=== PATIENT | female | born 1955 | race Hispanic/Latino ===

== ENCOUNTER 2017-07-05 14:18 | Inpatient (IN) | payer MEDICARE, OTHER ==
[2017-07-05 14:22] VITALS: BMI 41.8
--- NOTE | 2017-07-05 15:20 | ED PDOC ---
Arrival/HPI <Lucho Osman - Last Filed: 07/05/17 18:30> <PeterJoe Chandler - Last Filed: 07/05/17 18:31> - General Chief Complaint: Dizziness/Lightheaded Time Seen by Provider: 07/05/17 14:30 - History of Present Illness Narrative History of Present Illness (Text): 07/05/17 15:09 62 year old female presents to the emergency room with a chief complaint of near syncope with frequent falls. The patient states since Wednesday she has been experiencing increasing episodes of lightheadedness. She never had any of episodes like this before Wednesday. Since Wednesday she has been experiencing these episodes more frequently each day. She states that when she stands up from a seat position or if she has been standing too long, she gets extremely dizzy, lightheaded and then falls. "It feels like the world is spinning around me, then my body feels weightless and I collapse to the floor." Patient reports that she experiences blurred vision before she falls. She states that she has never lost consciousness with these falls. Denies hitting her head. Denies f/c, n/v, d/c, sob, cp, numbness, tingling, double vision, slurred speech, weakness or paralysis. PMD: Dr. Greenwood PMH: HTN, DM, Hypothyroidsm, Anxiety, Skin Cancer, Heart murmur, OA Social: Denies tobacco, alcohol and illicit drug use (Lucho Osman) Past Medical History - Provider Review Nursing Documentation Reviewed: Yes - Infectious Disease Hx of Infectious Diseases: None - Tetanus Immunization Tetanus Immunization: Unknown - Cardiac Hx Cardiac Disorders: Yes Hx Heart Murmur: Yes Hx Hypertension: Yes - Pulmonary Hx Respiratory Disorders: Yes Hx Pneumonia: Yes (hx) - Neurological Hx Neurological Disorder: Yes Hx Dizziness: Yes Other/Comment: bels palsy - HEENT Hx HEENT Disorder: No - Renal Hx Renal Disorder: No - Endocrine/Metabolic Hx Endocrine Disorders: Yes Hx Diabetes Mellitus Type 2: Yes (boaderline) Hx Hypothyroidism: Yes - Hematological/Oncological Hx Blood Disorders: Yes Hx Cancer: Yes (skin) - Integumentary Hx Dermatological Disorder: Yes Hx Melanoma: Yes - Musculoskeletal/Rheumatological Hx Musculoskeletal Disorders: Yes Hx Arthritis: Yes (b/ knees) Hx Falls: Yes Hx Osteoporosis: Yes - Gastrointestinal Hx Gastrointestinal Disorders: Yes Hx Gastroesophageal Reflux: Yes - Genitourinary/Gynecological Hx Genitourinary Disorders: No - Psychiatric Hx Psychophysiologic Disorder: Yes Hx Depression: Yes Hx Emotional Abuse: No Hx Physical Abuse: No Hx Substance Use: No - Past Surgical History Past Surgical History: No Previous - Surgical History Other/Comment: skin cancer removed from Forehead. 2 D&C's - Anesthesia Hx Anesthesia: Yes Hx Anesthesia Reactions: No Hx Malignant Hyperthermia: No - Suicidal Assessment Feels Threatened In Home Enviroment: No <Lucho Osman - Last Filed: 07/05/17 18:30> Family/Social History - Physician Review Nursing Documentation Reviewed: Yes Family/Social History: Unknown Family HX Smoking Status: Never Smoked Hx Alcohol Use: No Hx Substance Use: No Hx Substance Use Treatment: No <Lucho Osman - Last Filed: 07/05/17 18:30> Allergies/Home Meds <Lucho Osman - Last Filed: 07/05/17 18:30> <Joe Green - Last Filed: 07/05/17 18:31> Allergies/Adverse Reactions: Allergies No Known Allergies Allergy (Verified 07/05/17 14:22) Home Medications: Home Meds Medication Instructions Recorded Confirmed Alprazolam [Xanax] 0.25 mg PO TID 04/07/14 07/05/17 MetFORMIN [glucoPHAGE] 500 mg PO DAILY 04/07/14 07/05/17 PARoxetine [Paxil] 20 mg PO HS 04/07/14 07/05/17 Gemfibrozil [Lopid] 600 mg PO BID 11/11/15 07/05/17 Aspirin [Ecotrin] 81 mg PO DAILY 11/21/15 07/05/17 Magnesium Oxide [Mag-Ox] 400 mg PO TID 11/21/15 07/05/17 Zolpidem [Ambien] 10 mg PO HS 11/21/15 07/05/17 Allopurinol [Zyloprim] 1 tab PO BID 07/05/17 07/05/17 Cyanocobalamin (Vitamin B-12) 1,000 mcg SC Q30D 07/05/17 07/05/17 [Liquid B12] Folic Acid [Folic Acid] 1 mg PO DAILY 07/05/17 07/05/17 Glimepiride [amaRYL] 1 tab PO BID 07/05/17 07/05/17 Levothyroxine Sodium [Levothroid] 150 mcg PO DAILY 07/05/17 07/05/17 MetFORMIN [glucoPHAGE] 1 tab PO BID 07/05/17 07/05/17 Rosuvastatin Calcium [Crestor] 1 tab PO DAILY 07/05/17 07/05/17 Valsartan [Diovan] 1 tab PO DAILY 07/05/17 07/05/17 Review of Systems - Physician Review All systems were reviewed & negative as marked: Yes - Review of Systems Constitutional: Normal. absent: Fatigue, Fevers Eyes: Vision Changes (blurred vision). absent: Photophobia, Eye Pain Respiratory: absent: SOB, Cough, Wheezing Cardiovascular: absent: Chest Pain, Palpitations, Edema, Calf Pain Gastrointestinal: absent: Abdominal Pain, Constipation, Diarrhea, Nausea, Vomiting Genitourinary Female: absent: Dysuria Musculoskeletal: Other (knee pain b/l (hx of OA)) Skin: Normal Neurological: Dizziness, Other (near syncope). absent: Headache, Focal Weakness , Gait Changes, Speech Changes, Facial Droop Endocrine: Normal. absent: Diaphoresis Psychiatric: Normal <Lucho Osman - Last Filed: 07/05/17 18:30> Physical Exam Vital Signs Reviewed: Yes Temperature: Afebrile Blood Pressure: Normal Pulse: Regular Respiratory Rate: Normal Appearance: Positive for: Well-Appearing, Non-Toxic, Comfortable Pain Distress: None Mental Status: Positive for: Alert and Oriented X 3 Finger Stick Blood Glucose: 176 - Systems Exam Head: Present: Atraumatic, Normocephalic Extroacular Muscles: Present: EOMI Conjunctiva: Present: Normal Ears: Present: Normal, NORMAL TM, Normal Canal. No: Erythema, TM Bulging, Fluid , TM Perf Mouth: Present: Moist Mucous Membranes Nose (External): Present: Atraumatic Neck: Present: Normal Range of Motion Respiratory/Chest: Present: Clear to Auscultation. No: Respiratory Distress, Accessory Muscle Use, Wheezes, Rhonchi Cardiovascular: Present: Regular Rate and Rhythm, Normal S1, S2 Abdomen: Present: Normal Bowel Sounds. No: Tenderness, Distention, Peritoneal Signs Upper Extremity: Present: Normal Inspection, Normal ROM, NORMAL PULSES, Capillary Refill < 2s. No: Cyanosis, Edema Lower Extremity: Present: Normal Inspection, NORMAL PULSES, Neurovascularly Intact, Capillary Refill < 2 s. 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 - CBC - Hbg 11.4 (baseline) - WNL - CMP - AST 88/ALT 63 - rest unremarkable - Mag 2.5/Phos 2.3 - CK - 120 normal - Troponin - <0.01 normal (Lucho Osman) 07/05/17 In agreement with resident note, which includes further HPI details. Patient was seen and evaluated with resident, came up with plan and treatment together. 62 year old F p/w lightheadedness causing near syncope and frequent falls the last few days. Questionable vertigo but negative teodoro hallpike or nystagmus and not relieved with trial of meclizine. (Joe Green) - Lab Interpretations Lab Results: 07/05/17 14:42 07/05/17 14:42 Lab Results 07/05/17 14:42: Sodium 140, Potassium 4.4, Chloride 104, Carbon Dioxide 21, Anion Gap 19, BUN 32 H, Creatinine 1.0, Est GFR ( Amer) > 60, Est GFR ( Non-Af Amer) 56, Random Glucose 172 H, Calcium 9.8, Phosphorus 2.3 L, Magnesium 2.5 H, Total Bilirubin 0.6, AST 88 H, ALT 63 H, Alkaline Phosphatase 104, Total Creatine Kinase 120, Troponin I < 0.01, Total Protein 8.2, Albumin 4.8, Globulin 3.3, Albumin/Globulin Ratio 1.5 07/05/17 14:42: WBC 9.3, RBC 3.66, Hgb 11.4 L, Hct 35.2 L, MCV 96.2, MCH 31.1, MCHC 32.4, RDW 13.9, Plt Count 307, MPV 11.1 H, Gran % 72.2 H, Lymph % (Auto) 17.7 L, Esmeralda % (Auto) 6.9 H, Eos % (Auto) 2.7, Baso % (Auto) 0.5, Gran # 6.71 H , Lymph # 1.6, Esmeralda # 0.6, Eos # 0.3, Baso # 0.05 - RAD Interpretation Radiology Orders: 07/05/17 15:06 HEAD W/O CONTRAST [CT] Stat CHEST PORTABLE [RAD] Stat 07/05/17 18:16 BRAIN WITHOUT CONTRAST [MRI] Urgent MRA HEAD WITHOUT CONTRAST [MRI] Urgent CAROTID & VERTEBRAL DUPLEX [US] Urgent 07/05/17 18:21 DUPLEX LOWER EXTRM VEIN BILAT [US] Stat - Medication Orders Current Medication Orders: Aspirin (Ecotrin) 81 mg PO DAILY ERNIE Carbamide Peroxide (Debrox Ear Drops) 0 ml AU BID ERNIE Folic Acid (Folic Acid) 1 mg PO DAILY ERNIE Sodium Chloride (Sodium Chloride 0.9%) 1,000 mls @ 100 mls/hr IV .Q10H ERNIE Stop: 07/06/17 04:29 Insulin Human Lispro (Humalog Med) 0 units SC ACHS ERNIE PRN Reason: Protocol Levothyroxine Sodium (Synthroid) 150 mcg PO ACB ERNIE Magnesium Oxide (Mag-Ox) 400 mg PO TID ERNIE Meclizine HCl (Antivert) 25 mg PO Q8H ERNIE Paroxetine HCl (Paxil) 20 mg PO HS ERNIE Discontinued Medications Aspirin (Ecotrin) 325 mg PO STAT STA Stop: 07/05/17 18:23 Meclizine HCl (Antivert) 50 mg PO STAT STA Stop: 07/05/17 16:09 Last Admin: 07/05/17 17:15 Dose: 50 mg <Lucho Osman - Last Filed: 07/05/17 18:30> - 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 / has examined the patient and agrees with the treatment plan. - Scribe Statement The provider has reviewed the documentation as recorded by the Scribe <Joe Green - Last Filed: 07/05/17 18:31> - Scribe Statement 07/05/2017 Shazia Mike Provider Scribe Attestation: All medical record entries made by the Scribe were at my direction and personally dictated by me. I have reviewed the chart and agree that the record accurately reflects my personal performance of the history, physical exam, medical decision making, and the department course for this patient. I have also personally directed, reviewed, and agree with the discharge instructions and disposition. (Joe Green) Disposition/Present on Arrival - Present on Arrival History of DVT/PE: No History of Uncontrolled Diabetes: Yes Urinary Catheter: No History of Decub. Ulcer: No History Surgical Site Infection Following: None <Lucho Osman - Last Filed: 07/05/17 18:30> - Present on Arrival Any Indicators Present on Arrival: No History of Uncontrolled Diabetes: No - Disposition Have Diagnosis and Disposition been Completed?: Yes Disposition Time: 17:45 Patient Plan: Observation, Telemetry <Joe Green - Last Filed: 07/05/17 18:31> - Disposition Diagnosis: Near syncope Disposition: HOSPITALIZED Condition: FAIR Referrals: Thomas Greenwood MD [Primary Care Provider] - Follow up with primary Forms: Yours Florally (Gabonese)
[2017-07-05 15:33] LABS: BASO # 0.05 K/mm3 (0.0-2.0); BASO % 0.5 % (0.0-3.0); EOS # 0.3 (0.0-0.7); EOS % 2.7 % (1.5-5.0); GRAN # 6.71 (1.4-6.5); GRAN % 72.2 % (50.0-68.0); HEMATOCRIT 35.2 % (36.0-48.0); LYMPH # 1.6 (1.2-3.4); LYMPH % 17.7 % (22.0-35.0); MEAN CELL VOLUME 96.2 fl (80.0-105.0); MEAN CORPUSCULAR HEMOGLOBIN 31.1 pg (25.0-35.0); MEAN CORPUSCULAR HGB CONC 32.4 g/dl (31.0-37.0); MEAN PLATELET VOLUME 11.1 fl (7.0-11.0); MONO # 0.6 (0.1-0.6); MONO % 6.9 % (1.0-6.0); RED CELL DISTRIBUTION WIDTH 13.9 % (11.5-14.5); WHITE BLOOD COUNT 9.3 10^3/ul (4.5-11.0)
[2017-07-05 15:41] LABS: ALB/GLOB RATIO 1.5 (1.1-1.8); ALKALINE PHOSPHATASE 104 U/L (38-126); ALT/SGPT 63 U/L (7-56); AST/SGOT 88 U/L (14-36); BILIRUBIN,TOTAL 0.6 mg/dL (0.2-1.3); BLOOD UREA NITROGEN 32 mg/dL (7-21); CALCIUM 9.8 mg/dL (8.4-10.5); CARBON DIOXIDE 21 mmol/L (21-33); CHLORIDE 104 mmol/L (98-107); GFR AFRICAN-AMERICAN > 60; GLUCOSE,RANDOM 172 mg/dL (70-110); MAGNESIUM 2.5 mg/dL (1.7-2.2); PHOSPHOROUS 2.3 mg/dL (2.5-4.5); POTASSIUM 4.4 mmol/L (3.6-5.0); SODIUM 140 mmol/L (132-148); TOTAL PROTEIN 8.2 g/dL (5.8-8.3)
--- NOTE | 2017-07-05 15:43 | CT ---
PROCEDURE: CT HEAD WITHOUT CONTRAST. HISTORY: near syncope COMPARISON: Noncontrast head CT performed 06/16/16 TECHNIQUE: Axial computed tomography images were obtained through the head/brain without intravenous contrast. Radiation dose: Total exam DLP = 836.85 mGy-cm. This CT exam was performed using one or more of the following dose reduction techniques: Automated exposure control, adjustment of the mA and/or kV according to patient size, and/or use of iterative reconstruction technique. FINDINGS: Streak artifact from dental hardware. HEMORRHAGE: No intracranial hemorrhage. BRAIN: No mass effect or edema. The medellin-white matter differentiation appears intact. Please note that MRI with diffusion imaging is more sensitive in the detection of acute ischemic event. VENTRICLES: No hydrocephalus. CALVARIUM: Unremarkable. PARANASAL SINUSES: Unremarkable as visualized. No significant inflammatory changes. MASTOID AIR CELLS: Unremarkable as visualized. No inflammatory changes. OTHER FINDINGS: None. IMPRESSION: No acute intracranial pathology identified.
--- NOTE | 2017-07-05 15:49 | RAD ---
HISTORY: near syncope COMPARISON: Chest x-ray performed 11/11/15 TECHNIQUE: Chest, one view. FINDINGS: Examination limited by habitus. The patient's chin obscures evaluation of the right lung apex. LUNGS: No focal consolidation. Please note that chest x-ray has limited sensitivity for the detection of pulmonary masses. PLEURA: No significant pleural effusion identified. No definite pneumothorax . CARDIOVASCULAR: Mild cardiomegaly. Atherosclerotic calcifications of the aortic knob. OSSEOUS STRUCTURES: Degenerative changes of the spine. VISUALIZED UPPER ABDOMEN: Unremarkable. OTHER FINDINGS: None. IMPRESSION: Mild cardiomegaly.
[2017-07-05 15:52] LABS: TROPONIN I < 0.01 ng/mL
--- NOTE | 2017-07-05 16:19 | CARD ---
APPROVED REPORT EKG Measurement Heart [id number] <Conclusion> Normal sinus rhythm Minimal voltage criteria for LVH, may be normal variant Nonspecific ST and T wave abnormality Prolonged QT Abnormal ECG
[2017-07-05] MEDS ORDERED: Sodium Chloride 0.9% 1,000 ML IV SCH (18:30)
[2017-07-05] MEDS: Aspirin 325 mg EC Tablets PO STA ×2 (18:36→18:45)
[2017-07-05 18:41] LABS: PH,URINE 6.5 (4.7-8.0); URINE BILIRUBIN NEGATIVE (NEGATIVE); URINE BLOOD TRACE-INTACT (NEGATIVE); URINE GLUCOSE (UA) NEGATIVE (NEGATIVE); URINE KETONE NEGATIVE (NEGATIVE); URINE LEUKOCYTE ESTERASE SMALL Leu/uL (NEGATIVE); URINE PROTEIN 30 mg/dL (<30 mg/dL); URINE UROBILINOGEN 0.2 E.U./dL (<1 E.U./dL)
[2017-07-05 18:46] LABS: URINE APPEARANCE CLEAR (CLEAR); URINE COLOR YELLOW (YELLOW)
[2017-07-05 18:54] LABS: URINE WBC 15 - 20 /hpf (0-6)
[2017-07-05 18:55] LABS: URINE BACTERIA MANY (NEG)
[2017-07-05] MEDS ORDERED: Pantoprazole 40 mg EC Tab PO STA (18:58)
[2017-07-05 19:00] LABS: CHOLESTEROL 169 mg/dL (130-200)
[2017-07-05 19:02] LABS: THYROID STIMULATING HORMONE 2.5 mIU/mL (0.46-4.68)
[2017-07-05 19:11] LABS: FREE T4 0.88 ng/dL (0.78-2.19); T4 6.8 ug/dL (5.5-11.0)
[2017-07-05] MEDS: Enoxaparin 40 mg Syringe SC SCH (20:04)
[2017-07-05 22:22] LABS: TROPONIN I < 0.01 ng/mL
[2017-07-05] MEDS ORDERED: Pneumococcal 23-Valent Vaccine IM ONE (22:38)
[2017-07-05] MEDS: Insulin Lispro (humaLOG) MEDIUM Coverage SC SCH (22:45)
[2017-07-06 02:56] LABS: TROPONIN I < 0.01 ng/mL
[2017-07-06] MEDS: Pantoprazole 20 mg EC Tab PO SCH ×2 (05:07→15:22)
[2017-07-06 07:08] LABS: BASO # 0.04 K/mm3 (0.0-2.0); BASO % 0.5 % (0.0-3.0); EOS # 0.3 (0.0-0.7); EOS % 3.8 % (1.5-5.0); GRAN # 5.06 (1.4-6.5); GRAN % 62.8 % (50.0-68.0); HEMATOCRIT 31.3 % (36.0-48.0); LYMPH % 25.2 % (22.0-35.0); MEAN CELL VOLUME 96.9 fl (80.0-105.0); MEAN CORPUSCULAR HEMOGLOBIN 30.3 pg (25.0-35.0); MEAN CORPUSCULAR HGB CONC 31.3 g/dl (31.0-37.0); MEAN PLATELET VOLUME 10.6 fl (7.0-11.0); MONO # 0.6 (0.1-0.6); MONO % 7.7 % (1.0-6.0); WHITE BLOOD COUNT 8.1 10^3/ul (4.5-11.0)
[2017-07-06 07:27] LABS: ALB/GLOB RATIO 1.4 (1.1-1.8); ALKALINE PHOSPHATASE 68 U/L (38-126); ALT/SGPT 63 U/L (7-56); AST/SGOT 98 U/L (14-36); BILIRUBIN,DIRECT 0.3 mg/dL (0.0-0.4); BILIRUBIN,TOTAL 0.3 mg/dL (0.2-1.3); BLOOD UREA NITROGEN 25 mg/dL (7-21); CALCIUM 9.3 mg/dL (8.4-10.5); CARBON DIOXIDE 22 mmol/L (21-33); CHLORIDE 108 mmol/L (98-107); GFR AFRICAN-AMERICAN > 60; GLUCOSE,RANDOM 114 mg/dL (70-110); MAGNESIUM 2.3 mg/dL (1.7-2.2); POTASSIUM 4.1 mmol/L (3.6-5.0); SODIUM 140 mmol/L (132-148); TOTAL PROTEIN 6.8 g/dL (5.8-8.3)
[2017-07-06] MEDS: Insulin Lispro (humaLOG) MEDIUM Coverage SC SCH ×4 (08:04→21:48)
[2017-07-06] MEDS: Levothyroxine 150 MCG TAB PO SCH (08:11)
[2017-07-06] MEDS: Cefepime 1gm in NS 100ml 1 GM/100 ML BAG IVPB SCH ×3 (08:25→21:07)
[2017-07-06 08:28] LABS: RETIC% 1.7 % (0.5-1.5)
[2017-07-06 08:39] LABS: IRON 57 ug/dL (45-180)
--- NOTE | 2017-07-06 10:16 | MRI ---
PROCEDURE: MRI BRAIN WITHOUT CONTRAST HISTORY: ??TIA COMPARISON: 11/12/2015 MRI of the brain TECHNIQUE: Multiplanar, multisequence MR images of the brain were obtained without intravenous contrast enhancement. FINDINGS: HEMORRHAGE: None DWI: No evidence of an acute or early subacute infarction. BRAIN PARENCHYMA: No mass effect or edema. No atrophy or chronic microvascular ischemic changes. VENTRICLES: Unremarkable. No hydrocephalus. CRANIUM: Unremarkable. ORBITS: Grossly unremarkable. PARANASAL SINUSES/MASTOIDS: Clear VASCULAR SYSTEM: Skull base flow voids intact. OTHER FINDINGS: None. IMPRESSION: No acute findings
--- NOTE | 2017-07-06 10:18 | MRI ---
PROCEDURE: Magnetic Resonance Angiography Brain HISTORY: ??tia COMPARISON: None available. TECHNIQUE: 3D time of flight MR angiography of the intracranial arteries was performed. Rotating maximum intensity projection images were generated. FINDINGS: INTERNAL CEREBRAL ARTERIES: Unremarkable. The skull base, petrous, cavernous and supraclinoid segments are bilaterally widely patient. ANTERIOR CEREBRAL ARTERIES: Unremarkable. A1 and A2 segments are widely patent. Smaller distal branches unremarkable, as visualized. MIDDLE CEREBRAL ARTERIES: Unremarkable. M1 and M2 segments are widely patent. Perisylvian branches grossly symmetric. POSTERIOR CIRCULATION: Basilar Artery: Unremarkable. Distal Vertebral Arteries: Unremarkable. Posterior Cerebral Arteries: Unremarkable. Posterior Inferior Cerebellar Arteries: Unremarkable. ANEURYSM/ VASCULAR MALFORMATIONS: None. OTHER FINDINGS: None. IMPRESSION: Unremarkable MR angiography of the brain.
[2017-07-06] MEDS: Magnesium Oxide 400 mg Tab UD PO SCH ×3 (10:47→18:38)
[2017-07-06] MEDS: Enoxaparin 40 mg Syringe SC SCH (10:48)
--- NOTE | 2017-07-06 11:23 | US ---
PROCEDURE: Bilateral carotid artery duplex ultrasound HISTORY: Carotid stenosis TIA PHYSICIAN(S): Chao Chavez MD. TECHNIQUE: Duplex sonography and color-flow Doppler were used to evaluate the carotid bifurcations and limited segments of the vertebral arteries bilaterally. The exam is limited by body habitus and tortuous vessels. FINDINGS: There is mild smooth heterogeneous plaque noted at the carotid bifurcations bilaterally. The peak systolic velocity in the proximal right internal carotid artery is 74 cm/sec. This corresponds to a 20 to 39% proximal right ICA stenosis. Normal systolic velocities are noted in the proximal right external carotid artery. There is antegrade flow in the right vertebral artery. The peak systolic velocity in the proximal left internal carotid artery is 80 cm/sec. This corresponds to a 20 to 39% proximal left ICA stenosis. Normal systolic velocities are noted in the proximal left external carotid artery. There is antegrade flow in the left vertebral artery. IMPRESSION: 1. Bilateral 20-39% proximal ICA stenoses. 2. Antegrade flow in both vertebral arteries. 3. Limited study.
--- NOTE | 2017-07-06 11:24 | US ---
HISTORY: Leg pain and swelling. Evaluate for DVT PHYSICIAN(S): Chao Chavez MD. TECHNIQUE: Duplex sonography and color-flow Doppler with graded compression were used to evaluate the deep venous systems of both lower extremities. The exam is somewhat limited by body habitus. FINDINGS: The visualized deep venous systems of both lower extremities are sonographically normal and compressible. Normal wave forms and augmentation are seen. There is no sonographic evidence for deep venous thrombosis in the visualized segments of both lower extremities. IMPRESSION: No sonographic evidence for deep venous thrombosis in the visualized segments of both lower extremities.
--- NOTE | 2017-07-06 11:36 | CON ---
NEUROLOGY CONSULTATION REASON FOR CONSULTATION: Dizziness and falls. HISTORY OF PRESENTING ILLNESS: The patient is a 62-year-old female who has been asked for evaluation of dizziness. The patient started having dizziness about 5 days ago. Dizziness is described as lightheaded feeling as well as spinning sensation. She has had the world spinning. She said as soon as she gets up from the chair, she gets the spinning sensation and she falls to the ground. She does not lose consciousness. She never had such feeling before. She said over the last 4 days, it has improved, but she is still dizzy. REVIEW OF SYSTEMS: Denies any headache. Denies any ringing in the ears, loss of hearing or pressure sensation in the ears. Denies any chest pain, shortness of breath, abdominal pain, constipation, diarrhea, dysuria, cough or sputum production. PAST MEDICAL HISTORY: Includes hypertension, hypothyroidism, anxiety, osteoarthritis. MEDICATIONS: At home included Ambien, Diovan, Crestor, Paxil, metformin, levothyroxine, glimepiride, folic acid, aspirin and Xanax. ALLERGIES: NO KNOWN DRUG ALLERGIES. SOCIAL HISTORY: Denies smoking, use of alcohol or illicit drugs. FAMILY HISTORY: Reviewed and noncontributory to the case. PHYSICAL EXAMINATION: GENERAL: The patient is an elderly pleasant female, lying on the bed, in no acute distress. VITAL SIGNS: Her blood pressure is 127/50, heart rate is 71 per minute, breathing at the rate of 16 per minute and temperature is 98.7 degree Fahrenheit. HEENT EXAM: Head is normocephalic and atraumatic. NECK: Supple. There are no carotid bruits. LUNGS: Clear. CARDIOVASCULAR EXAM: S1 and S2, audible. No murmurs. ABDOMEN: Soft and nontender. Bowel sounds are present. NEUROLOGY EXAMINATION: Mental status. The patient is awake, alert and oriented to time, place and person. Speech is fluent. Naming and repetition is normal. Memory and cognition are intact. Cranial Nerve Examination: Pupils are 4 mm bilaterally, reactive to light. Visual roldan are full. Extraocular movements are intact. There is no facial asymmetry. Palate is upgoing bilaterally and tongue is midline. Motor Examination: Tone is normal. Power is 5/5 bilaterally in all extremities. Reflexes +1 and symmetrical with absent ankle jerk. Plantars downgoing bilaterally. Cerebellar Examination: [id number] shows no dysmetria. Sensory Examination: Intact to soft touch and pin prick. Gait is deferred at the moment. LABORATORY DATA: Reviewed, shows WBC of 8.1, hemoglobin of 9.8, hematocrit of 31.3 and platelets of 254. Sodium is 140, potassium 4.1, chloride of 108, carbon dioxide content of 22, BUN of 25, creatinine 1.0 and glucose of 114. She had MRI of the brain done which showed no acute findings. She also had MRA of the brain, which was unremarkable MRA of the brain. 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 RECOMMENDATIONS: 1. The patient to have an electroencephalogram. 2. The patient to be continued on meclizine. 3. The patient to have physical therapy for gait and balance. 4. If the patient's dizziness improves and she is able to walk, then she maybe discharged with outpatient followup. 5. Please continue supportive care and other treatment. Thank you for the opportunity to participate in the care of this patient. Jorgito Wayne MD
--- NOTE | 2017-07-06 11:43 | CP.PCM.PN ---
Subjective - Date & Time of Evaluation Date of Evaluation: 07/06/17 Time of Evaluation: 11:39 - Subjective Subjective: Medicine Progress note. Dr. Greenwood Pt seen and examined at bedside. No acute events overnight. Patient states that she is very independent at home and walks with a cane. She states that she has been feeling dizzy for the past few days, described as "feeling un-centered" and "room-spinning". Denies any CP/SOB. No headaches. No N/V/D. No abd pain. No F/C. No signs of bleeding. No recent illness. Objective - Vital Signs/Intake and Output Vital Signs (last 24 hours): Temp Pulse Resp BP Pulse Ox 98.7 F 67 18 127/50 L 96 07/06/17 06:00 07/06/17 10:00 07/06/17 06:00 07/06/17 06:00 07/06/17 06:00 Intake and Output: 07/06/17 07/06/17 06:59 18:59 Intake Total 1240 Output Total 0 Balance 1240 - Medications Medications: Current Medications Alprazolam (Xanax) 0.25 mg PO TID ERNIE PRN Reason: Protocol Stop: 07/13/17 10:01 Last Admin: 07/06/17 10:47 Dose: 0.25 mg Aspirin (Ecotrin) 81 mg PO DAILY [facility] Last Admin: 07/06/17 10:47 Dose: 81 mg Carbamide Peroxide (Debrox Ear Drops) 0 ml AU BID [facility] Last Admin: 07/05/17 18:35 Dose: 1 applic Enoxaparin Sodium (Lovenox) 40 mg SC DAILY ERNIE PRN Reason: Protocol Last Admin: 07/06/17 10:48 Dose: 40 mg Folic Acid (Folic Acid) 1 mg PO DAILY [facility] Last Admin: 07/06/17 10:47 Dose: 1 mg Cefepime HCl (Maxipime 1gm) 1 gm in 100 mls @ 100 mls/hr IVPB Q8 ERNIE PRN Reason: Protocol Last Admin: 07/06/17 08:25 Dose: 100 mls/hr Iron Sucrose 200 mg/ Sodium (Chloride) 110 mls @ 110 mls/hr IVPB DAILY ERNIE Stop: 07/08/17 10:59 Insulin Human Lispro (Humalog Med) 0 units SC ACHS ERNIE PRN Reason: Protocol Last Admin: 07/06/17 08:04 Dose: Not Given Levothyroxine Sodium (Synthroid) 150 mcg PO ACB [facility] Last Admin: 07/06/17 08:11 Dose: 150 mcg Magnesium Oxide (Mag-Ox) 400 mg PO TID [facility] Last Admin: 07/06/17 10:47 Dose: 400 mg Meclizine HCl (Antivert) 25 mg PO Q8H [facility] Last Admin: 07/06/17 10:50 Dose: 25 mg Pantoprazole Sodium (Protonix Ec Tab) 20 mg PO 0600,1600 [facility] Last Admin: 07/06/17 05:07 Dose: 20 mg Paroxetine HCl (Paxil) 20 mg PO HS [facility] Last Admin: 07/05/17 22:45 Dose: 20 mg Zolpidem Tartrate (Ambien) 10 mg PO HS PRN; Protocol PRN Reason: Insomnia Last Admin: 07/05/17 22:45 Dose: 10 mg - Labs Labs: 07/06/17 05:15 07/06/17 05:15 - Constitutional Appears: Well, No Acute Distress - Head Exam Head Exam: ATRAUMATIC, NORMAL INSPECTION, NORMOCEPHALIC - Eye Exam Eye Exam: EOMI - ENT Exam ENT Exam: Mucous Membranes Moist - Neck Exam Neck Exam: Full ROM, Normal Inspection - Respiratory Exam Respiratory Exam: Clear to Ausculation Bilateral, NORMAL BREATHING PATTERN. absent: Accessory Muscle Use, Rales, Rhonchi, Wheezes - Cardiovascular Exam Cardiovascular Exam: RRR. absent: JVD - GI/Abdominal Exam GI & Abdominal Exam: Soft. absent: Distended, Firm, Guarding, Rigid, Tenderness , Rebound - Extremities Exam Extremities Exam: Pedal Edema (bilateral mild 1+ pitting edema). 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 - Psychiatric Exam Psychiatric exam: Normal Affect, Normal Mood - Skin Skin Exam: Dry, Intact, Normal Color, Warm Assessment and Plan - Assessment and Plan (Free Text) Assessment: 62yo F with PMHx including DM, HTN, Hypothyroid, Anxiety here with near-syncope - DM - HTN - Hypothyroidism - UTI - MRI Brain - negative - MRA brain - negative - CT Head - negative - Carotid Doppler - 20-39% bilateral proximal ICA stenosis. Antegrade flow. - EEG pending - Cefepime IV pending micro - Iron IV - Continue home meds as ordered - Appreciate Neuro consult - Meclizine - Physical Therapy Eval&Treat Discussed case with Dr. Krystyna Root PGY1
--- NOTE | 2017-07-06 12:14 | PN ---
DATE: 07/06/2017 The patient is seen in room 2675, bed one. SUBJECTIVE: The patient is made to sit up from the lying position. The patient is still complaining of dizziness, lightheadedness. The patient is still unable to, correctly do the efqqin-iify-sxejek coordination. The patient still has questionable Romberg sign. Overnight nurse's notes were reviewed. OBJECTIVE: VITAL SIGNS: T-max afebrile. Telemetry shows sinus rhythm, heart rate in 60s and 70s. Blood pressure 127/50, 123/71, 120/81, respiration 18 to 20, O2 sat 96% to 97%. HEENT: The patient's head examination normocephalic, atraumatic. HEENT examination shows pinkish pale conjunctivae. Anicteric sclerae. No oropharyngeal lesion. NECK: No neck rigidity. CHEST: Examination kyphosis. CARDIOPULMONARY: Examination S1, S2, regular rhythm. LUNGS: Examination shows no rales, crackles or wheezing. ABDOMEN: Abdomen is soft. Positive bowel sounds. Obese. GENITALIA: Female. RECTAL: Examination is deferred. EXTREMITIES: Shows chronic nonpitting swelling of the lower extremity. No calf tenderness. No Homans' sign. NEUROLOGIC: The patient is alert, awake, oriented x3. Motor strength is 5/5. Questionable Romberg sign is noted positive, inability to do htvntu-xowe-ephyhf coordination. Noted. MUSCULOSKELETAL: Examination shows a body mass index of 42. Gait examination could not be tested. DIAGNOSTIC DATA: The patient's diagnostic from 07/06/2017 noted. WBC count 8.1, hemoglobin/hematocrit has dropped to 9.8 and 31.3 from 11.4 and 35.2, platelet 254. Reticulocyte count 1.7. Sodium 140, potassium 4.1, chloride 108, CO2 22, anion gap 14, BUN 25, creatinine 1.0. GFR greater than 60, glucose 119, 114, 96, calcium 9.3, magnesium 2.3. Iron 57 which is low normal, TIBC 390, iron saturation 15, AST 98, ALT 63, troponin three sets are all negative. Lipid panel reviewed. Thyroid profile reviewed. MRI, MRA of the brain was noted which was done. MRI of the brain was noted to be negative for any acute infarct. MRA of the brain, carotid ultrasound is pending. IMPRESSION AND PLAN: 1. Questionable near syncope with recurrent persistent dizziness and lightheadedness, questionable transient ischemic attack. 2. Hypertension. 3. Morbid obesity. 4. Normocytic anemia. 5. Iron-deficiency normocytic anemia. 6. Granulocytosis. 7. Mildly elevated reticulocyte count. 8. Prerenal kidney injury. 9. Transaminitis etiology undetermined. 10. Questionable urinary tract infection with proteinuria, hematuria, pyuria, bacteriuria. 11. Questionable Romberg sign. 12. Questionable severe symptomatic vertigo. 13. N.p.o. 14. Hypertensive cardiovascular disease with lateral coronary ischemic changes. 15. History of insomnia. 16. History of dyslipidemia. 17. History of depression. 18. History of type 2 diabetes mellitus. 19. History of hypomagnesemia. 20. History of hypothyroidism. 21. History of hypovitaminosis D. 22. History of vitamin B12 deficiency. 23. History of anxiety disorder. 24. History of hyperuricemia. Plan at this time, the patient is seen by Neurology. The patient is to be continued on Ambien 10 mg h.s. p.r.n., meclizine 25 mg q.8h., Ecotrin 81 mg daily, folic acid 1 mg daily, Humalog medium dose sliding scale coverage. The patient is started on Venofer 200 mg IV daily. Lovenox 40 mg subcutaneous daily. Magnesium oxide 400 mg three times a day. Maxipime 1 g IV q.8. Paxil 20 mg h.s. Protonix 40 mg daily. Synthroid 150 mcg daily. Xanax 0.25 t.i.d. Venous Doppler, carotid Doppler results pending. EKG report pending. The patient is seen by neurology. EEG ordered. Consistent carbohydrate, physical therapy, occupational therapy ordered. At present, the patient's further management will be dependent upon the patient's clinical condition, hemodynamic status and as per the patient response to therapeutic intervention, as per the patient's diagnostic test results, and as per recommendation by all the physician involved in the care of the patient. The patient is updated about her condition, diagnosis, treatment plan, management plan. Dictated and electronically signed, not read. Thomas Greenwood MD [facility] # [id number]
[2017-07-06 13:04] LABS: FOLATE > 20.0 ng/mL
[2017-07-07] MEDS: Cefepime 1gm in NS 100ml 1 GM/100 ML BAG IVPB SCH ×2 (05:19→13:20)
[2017-07-07] MEDS: Pantoprazole 20 mg EC Tab PO SCH (05:19)
[2017-07-07 06:10] VITALS: RESP 18; O2SAT 94
--- NOTE | 2017-07-07 08:03 | HP ---
HISTORY OF PRESENT ILLNESS: The patient is a 62-year-old morbidly obese female who presented to the emergency room on 07/05/2017 complaining of 4-day history of dizzy spell, near syncope, but no loss of consciousness, difficulty standing up and feels like room is spinning. The patient has difficulty walking and recurrent falls. The patient came to the emergency room as an ambulatory walk-in. The patient was evaluated by the ER physician and the medical reception. The patient stated that she almost passed out of recurrent falls, severe dizziness, and lightheadedness. The patient's symptoms started 4 days prior on 07/02/2017. The patient's symptoms started getting more frequent and more severe. The patient felt that the room was spinning. The patient felt like she was about to pass out. The patient denies any loss of consciousness. CODE STATUS: FULL CODE. LIVING WILL: Advance directive none. Height is 5 feet 6 inches. Weight is 259. BMI is 42. ALLERGIES: NONE. HOME MEDICATIONS: 1. Ambien 10 mg at bedtime. 2. Diovan 80 mg daily. 3. Crestor 20 mg daily. 4. Paxil 20 mg at bedtime. 5. Metformin 1000 mg breakfast and dinner and 500 mg with lunch. 6. Magnesium oxide 400 mg 3 times a day. 7. Synthroid 150 mcg daily. 8. Amaryl 2 mg twice a day. 9. Lopid 600 mg twice a day. 10. Folic acid 1 mg daily. 11. Drisdol 50,000 weekly. 12. Vitamin B12, 1000 mcg once a month. 13. Ecotrin 81 mg daily. 14. Xanax 0.25 three times a day. 15. Zyloprim. 16. Allopurinol 100 mg twice a day. The patient's pharmacy is [facility]. SOCIAL HISTORY: Negative for smoking. Negative for alcohol. Negative for drug use. Negative for communicable transmissible disease. PAST MENSTRUAL HISTORY: Postmenopausal. OCCUPATIONAL HISTORY: Disabled elderly obese female. PAST MEDICAL AND SURGICAL HISTORY: History of anxiety, history of depression, history of insomnia, history of hypertension, history of proteinuria, microalbuminuria, history of morbid obesity, history of dyslipidemia, history of iron deficiency anemia, history of non-insulin requiring type 2 diabetes mellitus, history of hypomagnesemia, history of hypothyroidism, history of hypovitaminosis D, history of vitamin B12 deficiency, and history of hyperuricemia.. The patient's past medical history is significant for obesity, history of bilateral lower extremity nonpitting venous stasis, history of dense breast, history of osteoporosis, osteopenia, and history of negative stress test in 11/2015. Past medical history is significant for degenerative joint disease of the knees, history of morbid obesity, and history of aortic sclerosis. The patient's past medical history is significant for near syncope, history of abnormal EKG with lateral ischemic changes, history of hypertensive cardiovascular disease, history of normocytic iron-deficiency anemia, history of hypovitaminosis D, hypothyroidism, history of vertigo, history of hypertension, history of anxiety and depression, history of syncope, near syncope, history of weakness, and history of anxiety. History of normal EEG. PHYSICAL EXAMINATION: VITAL SIGNS: T-max 98.2 to 98.4, heart rate 90, 86, and 74, blood pressure 112/77, 114/75, 118/69, 120/81, respirations 18, and O2 sat 96%-97%. HEENT: Head is normocephalic and atraumatic. HEENT examination shows pinkish pale conjunctivae. Anicteric sclerae. NECK: Questionable soft carotid bruit. CHEST: Kyphosis. LUNGS: Shows no rales, crackles or wheezing. CARDIOVASCULAR: S1 and S2, regular rhythm. Questionable soft systolic murmur, left second intercostal space, left sternal border. ABDOMEN: Morbidly obese. GENITALIA: Female. RECTAL: Deferred. EXTREMITIES: Shows chronic nonpitting swelling of the lower extremity. MUSCULOSKELETAL: Shows a body mass index of 42. Cranial nerves II through XII limited. Motor strength 5/5 in upper and lower extremity. The patient has a questionable positive Romberg sign. The patient is unable to do xhmbye-zkzj-mlwpfx coordination. Wdug-dtyk-ihro is impaired. Romberg sign with questionable positive. Motor strength is 5/5 in upper and lower extremities. PSYCHIATRIC: Positive for extreme anxiety, depression, and insomnia. DIAGNOSTIC DATA: WBC 9.3, hemoglobin/hematocrit 11.4 and 35.2, and platelets 307. Granulocytes 72. Sodium 140, potassium 4.4, chloride 104, CO2 of 21, anion gap 19, BUN 32, creatinine 1.0, GFR is greater than 60, and glucose 172. Calcium 9.8, phosphorus 2.3, magnesium 2.5, AST 88, ALT 63, and troponin is negative. TSH is 2.5 and T4 is 6.8. Urine pH 6.5, specific gravity 1.015, 30 protein, trace type blood, small leukocyte, WBC 15-20, and many bacteria. Urine drug screen positive for benzodiazepines. Chest x-ray shows degenerative joint disease of the spine. Mild cardiomegaly. CT of the head was done. Venous Doppler of the lower extremities preliminary reading was negative for DVT. EKG was done in the emergency room shows sinus rhythm with T-wave changes in 1, aVL, and V4-V6. The patient was seen and evaluated in the emergency room by and medical reception. The patient was advised to be placed on telemetry for near-syncope. IMPRESSION AND PLAN: 1. Near syncope, etiology undetermined with severe dizziness and recurrent falls. 2. Questionable severe symptomatic vertigo. 3. Questionable transient ischemic infarct. 4. Questionable transient ischemic attack. 5. History of hypertension. 6. Morbid obesity. 7. Normocytic anemia with granulocytosis. 8. Type 2 non-insulin requiring diabetes mellitus with hyperglycemia. 9. Prerenal kidney injury. 10. Transaminitis, etiology undetermined. 11. Questionable urinary tract infection with proteinuria, microscopic hematuria, pyuria, and bacteriuria. 12. Morbid obesity. 13. Hypertensive cardiovascular disease. 14. Questionable lateral coronary ischemic changes. 15. Mild cardiomegaly with degenerative joint disease of the spine. 16. History of urinary tract infection. 17. History of insomnia, history of hypertension, history of microalbuminuria and proteinuria, history of dyslipidemia, history of depression, history of type 2 diabetes mellitus, history of hypothyroidism, history of hypovitaminosis D, history of vitamin B12 deficiency, history of anxiety, and history of hyperuricemia. Present, the patient is to be admitted to [facility]. The patient's further management will be dependent upon the patient's clinical condition, hemodynamic status, and as per the patient response to therapeutic intervention as per the patient's diagnostic test results and as per recommendation by all the physician involved in the care of the patient. The patient has been updated about her condition, diagnosis, treatment plan, management plan at length and all questions concerned and answered, which she acknowledged understand. The patient has been ordered an MRI, MRA of the brain, and carotid Doppler.. The patient will be requested neurology consultation. The patient was resumed on most of this medication. The patient started on Antivert 25 mg every 8 hours. Ecotrin 81 mg daily, folic acid 1 mg daily, and the patient started on Humalog medium dose sliding scale a.c. and at bedtime ordered. The patient is ordered on DVT prophylaxis.. Urine cultures have been ordered. Hepatitis serologies have been ordered. Lipid panel, uric acid, B12, and folate ordered. The patient has been ordered HIV. Neurology consultation ordered. Humalog medium dose a.c. and at bedtime ordered. Magnesium oxide 400 three times a day ordered, and Paxil 20 mg daily ordered. The patient is on GI prophylaxis with Protonix 40 mg daily, Synthroid 150 mcg daily, and Xanax 0.25 t.i.d. The patient has been ordered carotid and venous Doppler of the lower extremity. Repeat EKG ordered. The patient is on consistent carbohydrate diet and stockings and SCDs ordered. Physical therapy and occupational therapy ordered. At present, the patient is to be admitted to telemetry for observation for further management and treatment. The patient's further management will be dependent upon the patient's clinical condition, hemodynamic status, and as per the patient response to therapeutic intervention as per the patient's diagnostic test results and as per recommendation by all the physician involved in the care of the patient. Dictated and electronically signed, not read. Thomas Greenwood MD
[2017-07-07] MEDS: Levothyroxine 150 MCG TAB PO SCH (08:14)
[2017-07-07 09:55] LABS: BASO # 0.03 K/mm3 (0.0-2.0); BASO % 0.4 % (0.0-3.0); EOS # 0.3 (0.0-0.7); GRAN # 4.78 (1.4-6.5); GRAN % 65.1 % (50.0-68.0); HEMATOCRIT 30.2 % (36.0-48.0); LYMPH # 1.6 (1.2-3.4); LYMPH % 22.2 % (22.0-35.0); MEAN CELL VOLUME 97.1 fl (80.0-105.0); MEAN CORPUSCULAR HEMOGLOBIN 31.2 pg (25.0-35.0); MEAN CORPUSCULAR HGB CONC 32.1 g/dl (31.0-37.0); MEAN PLATELET VOLUME 10.4 fl (7.0-11.0); MONO # 0.6 (0.1-0.6); MONO % 8.3 % (1.0-6.0); RED CELL DISTRIBUTION WIDTH 14.2 % (11.5-14.5); WHITE BLOOD COUNT 7.3 10^3/ul (4.5-11.0)
[2017-07-07] MEDS: Magnesium Oxide 400 mg Tab UD PO SCH ×2 (10:05→13:20)
[2017-07-07] MEDS: Insulin Lispro (humaLOG) MEDIUM Coverage SC SCH ×2 (10:06→13:20)
[2017-07-07] MEDS: Enoxaparin 40 mg Syringe SC SCH (10:06)
[2017-07-07 10:15] LABS: ALB/GLOB RATIO 1.5 (1.1-1.8); ALKALINE PHOSPHATASE 68 U/L (38-126); ALT/SGPT 75 U/L (7-56); AST/SGOT 101 U/L (14-36); BILIRUBIN,TOTAL 0.4 mg/dL (0.2-1.3); BLOOD UREA NITROGEN 20 mg/dL (7-21); CALCIUM 9.3 mg/dL (8.4-10.5); CARBON DIOXIDE 21 mmol/L (21-33); CHLORIDE 108 mmol/L (98-107); GFR AFRICAN-AMERICAN > 60; GLUCOSE,RANDOM 200 mg/dL (70-110); POTASSIUM 4.2 mmol/L (3.6-5.0); SODIUM 140 mmol/L (132-148); TOTAL PROTEIN 6.7 g/dL (5.8-8.3)
--- NOTE | 2017-07-07 12:51 | PN ---
DATE: 07/07/2017 SUBJECTIVE: The patient is lying in bed, in no acute distress. She said her dizziness is a little better. PHYSICAL EXAMINATION VITAL SIGNS: Her blood pressure is 116/63, heart rate is 64 per minute, breathing at a rate of 16 per minute, temperature 98.3 degrees Fahrenheit. HEENT: Normocephalic and atraumatic. NECK: Supple. There are no carotid bruits. LUNGS: Clear. CARDIOVASCULAR: S1, S2 audible. No murmurs. ABDOMEN: Soft and nontender. Bowel sounds present. NEUROLOGIC: Mental status, the patient is awake, alert, oriented to time, place, and person. Speech is fluent. Naming and repetition normal. Memory and recognition are intact. Cranial nerve examination, pupils are 3 mm bilaterally reactive to light. Visual roldan are full. Extraocular movements are intact. There is no facial asymmetry. Tongue is midline. Motor examination, tone is normal. Power is 5/5 bilaterally in all extremities. Reflexes are +1 and symmetrical. Plantars are downgoing bilaterally. LABORATORY DATA: Reviewed. MRI of the brain, no acute finding. MRA of the brain, unremarkable. She had an electroencephalogram done which was normal. IMPRESSION: Dizziness, likely secondary to labyrinthine dysfunction. RECOMMENDATIONS: 1. The patient to be continued on meclizine. 2. The patient's dizziness seems to be better than yesterday. 3. If the patient remains stable, then she may be discharged with outpatient followup. 4. No further neurologic recommendations. Please call neurology on an as needed basis. Thank you for the opportunity to participate in the care of this patient. Jorgito Wayne MD
[2017-07-07 13:03] VITALS: BP 138/71; PULSE 70; TEMP 97.6
--- NOTE | 2017-07-07 14:04 | CON ---
DATE: 07/07/2017 HISTORY OF PRESENT ILLNESS: The patient is a 62-year-old woman who presents with sudden onset of dizziness with complaining of the room spinning around her. Since then, her symptoms have improved. PAST MEDICAL HISTORY: Notable for diabetes mellitus, hypertension and a cardiac workup a year and a half ago was unremarkable. She denies chest pain and denies shortness of breath. SOCIAL HISTORY: The patient does not smoke. REVIEW OF SYSTEMS: All negative for cardiac symptomatology. PHYSICAL EXAMINATION: VITAL SIGNS: Blood pressure 138/71 and heart rate in the 70s, normal sinus rhythm. NECK: Negative JVD. LUNGS: Without rales. HEART: Reveal S1 and S2. EXTREMITIES: Without clubbing, cyanosis edema. LABORATORY/SIGNIFICANT STUDIES: EKG shows normal sinus rhythm and no acute changes. Negative troponins. Hemoglobin is 10.7. IMPRESSION: 1. Vertigo. 2. Diabetes mellitus. 3. Anemia. 4. Dizziness. 5. Obesity. PLAN: Given these findings, the patient's vertigo is well treated with Antivert. From a cardiac perspective, the patient can be discharged. We will arrange for an outpatient workup and followup. Chao Tolbert MD
--- NOTE | 2017-07-07 14:19 | CP.PCM.DIS ---
Provider - Provider Date of Admission: 07/06/17 18:13 Attending physician: Thomas Greenwood MD Primary care physician: Thomas Greenwood MD Consults: Cardio: Dr. Tolbert Neuro: Dr. Wayne Time Spent in preparation of Discharge (in minutes): 45 Hospital Course - Lab Results Lab Results: Most Recent Lab Values WBC 7.3 10^3/ul (4.5-11.0) 07/07/17 09:35 RBC 3.11 10^6/uL (3.5-6.1) L 07/07/17 09:35 Hgb 9.7 g/dL (12.0-16.0) L 07/07/17 09:35 Hct 30.2 % (36.0-48.0) L 07/07/17 09:35 MCV 97.1 fl (80.0-105.0) 07/07/17 09:35 MCH 31.2 pg (25.0-35.0) 07/07/17 09:35 MCHC 32.1 g/dl (31.0-37.0) 07/07/17 09:35 RDW 14.2 % (11.5-14.5) 07/07/17 09:35 Plt Count 225 10^3/uL (120.0-450.0) 07/07/17 09:35 MPV 10.4 fl (7.0-11.0) 07/07/17 09:35 Gran % 65.1 % (50.0-68.0) 07/07/17 09:35 Lymph % (Auto) 22.2 % (22.0-35.0) 07/07/17 09:35 Brule % (Auto) 8.3 % (1.0-6.0) H 07/07/17 09:35 Eos % (Auto) 4.0 % (1.5-5.0) 07/07/17 09:35 Baso % (Auto) 0.4 % (0.0-3.0) 07/07/17 09:35 Gran # 4.78 (1.4-6.5) 07/07/17 09:35 Lymph # 1.6 (1.2-3.4) 07/07/17 09:35 Brule # 0.6 (0.1-0.6) 07/07/17 09:35 Eos # 0.3 (0.0-0.7) 07/07/17 09:35 Baso # 0.03 K/mm3 (0.0-2.0) 07/07/17 09:35 Retic Count 1.70 % (0.5-1.5) H 07/06/17 08:00 Sodium 140 mmol/L (132-148) 07/07/17 09:35 Potassium 4.2 mmol/L (3.6-5.0) 07/07/17 09:35 Chloride 108 mmol/L (98-107) H 07/07/17 09:35 Carbon Dioxide 21 mmol/L (21-33) 07/07/17 09:35 Anion Gap 15 (10-20) 07/07/17 09:35 BUN 20 mg/dL (7-21) 07/07/17 09:35 Creatinine 1.0 mg/dL (0.5-1.4) 07/07/17 09:35 Est GFR ( Amer) > 60 07/07/17 09:35 Est GFR (Non-Af Amer) 56 07/07/17 09:35 POC Glucose (mg/dL) 183 mg/dL (65-110) H 07/07/17 11:36 Random Glucose 200 mg/dL (70-110) H 07/07/17 09:35 Uric Acid 6.7 mg/dL (2.5-6.2) H 07/06/17 10:33 Calcium 9.3 mg/dL (8.4-10.5) 07/07/17 09:35 Phosphorus 2.3 mg/dL (2.5-4.5) L 07/05/17 14:42 Magnesium 2.3 mg/dL (1.7-2.2) H 07/06/17 05:15 Iron 57 ug/dL (45-180) 07/06/17 08:00 TIBC 390 ug/dL (265-497) 07/06/17 08:00 % Saturation 15 % (20-55) L 07/06/17 08:00 Erythropoietin 31.6 mIU/mL (2.6-18.5) H 07/06/17 08:00 Ferritin 55.4 ng/mL 07/06/17 08:00 Total Bilirubin 0.4 mg/dL (0.2-1.3) 07/07/17 09:35 Direct Bilirubin 0.3 mg/dL (0.0-0.4) 07/06/17 05:15 AST 101 U/L (14-36) H 07/07/17 09:35 ALT 75 U/L (7-56) H 07/07/17 09:35 Alkaline Phosphatase 68 U/L (38-126) 07/07/17 09:35 Lactate Dehydrogenase 510 U/L (333-699) 07/06/17 08:00 Total Creatine Kinase 99 U/L (35-230) 07/06/17 02:15 Troponin I < 0.01 ng/mL 07/06/17 02:15 Total Protein 6.7 g/dL (5.8-8.3) 07/07/17 09:35 Albumin 4.0 g/dL (3.0-4.8) 07/07/17 09:35 Globulin 2.7 gm/dL 07/07/17 09:35 Albumin/Globulin Ratio 1.5 (1.1-1.8) 07/07/17 09:35 Triglycerides 130 mg/dL (35-160) 07/05/17 14:42 Cholesterol 169 mg/dL (130-200) 07/05/17 14:42 LDL Cholesterol Direct 93 mg/dL (0-129) 07/05/17 14:42 HDL Cholesterol 53 mg/dL (29-60) 07/05/17 14:42 Vitamin B12 604 pg/mL (239-931) 07/05/17 14:42 Folate > 20.0 ng/mL 07/05/17 14:42 Free T4 0.88 ng/dL (0.78-2.19) 07/05/17 14:42 Thyroxine (T4) 6.8 ug/dL (5.5-11.0) 07/05/17 14:42 TSH 3rd Generation 2.50 mIU/mL (0.46-4.68) 07/05/17 14:42 Urine Color Yellow (YELLOW) 07/05/17 18:30 Urine Appearance Clear (CLEAR) 07/05/17 18:30 Urine pH 6.5 (4.7-8.0) 07/05/17 18:30 Ur Specific [place] 1.015 (1.005-1.035) 07/05/17 18:30 Urine Protein 30 mg/dL (<30 mg/dL) H 07/05/17 18:30 Urine Glucose (UA) Negative mg/dL (NEGATIVE) 07/05/17 18:30 Urine Ketones Negative mg/dL (NEGATIVE) 07/05/17 18:30 Urine Blood Trace-intact (NEGATIVE) H 07/05/17 18:30 Urine Nitrate Negative (NEGATIVE) 07/05/17 18:30 Urine Bilirubin Negative (NEGATIVE) 07/05/17 18:30 Urine Urobilinogen 0.2 E.U./dL (<1 E.U./dL) 07/05/17 18:30 Ur Leukocyte Esterase Small [place]/uL (NEGATIVE) H 07/05/17 18:30 Urine RBC 5 - 10 /hpf (0-2) 07/05/17 18:30 Urine WBC 15 - 20 /hpf (0-6) 07/05/17 18:30 Ur Epithelial Cells 6 - 8 /hpf (0-5) 07/05/17 18:30 Urine Bacteria Many (NEG) 07/05/17 18:30 Urine Opiates Screen Negative (NEGATIVE) 07/05/17 18:50 Urine Methadone Screen Negative (NEGATIVE) 07/05/17 18:50 Ur Barbiturates Screen Negative (NEGATIVE) 07/05/17 18:50 Ur Phencyclidine Scrn Negative (NEGATIVE) 07/05/17 18:50 Ur Amphetamines Screen Negative (NEGATIVE) 07/05/17 18:50 U Benzodiazepines Scrn Positive (NEGATIVE) H 07/05/17 18:50 U Oth Cocaine Metabols Negative (NEGATIVE) 07/05/17 18:50 U Cannabinoids Screen Negative (NEGATIVE) 07/05/17 18:50 Hepatitis A IgM Ab Negative (NEGATIVE) 07/05/17 17:35 Hep Bs Antigen Negative (NEGATIVE) 07/05/17 17:35 Hep B Core IgM Ab Negative (NEGATIVE) 07/05/17 17:35 Hepatitis C Antibody Negative (NEGATIVE) 07/05/17 17:35 HIV 1&2 Ag/Ab, 4th Gen Nonreactive (Nonreactive) 07/05/17 21:45 - Hospital Course Hospital Course: 62 year old female presents to the emergency room with a chief complaint of near syncope with frequent falls. The patient states since Wednesday she has been experiencing increasing episodes of lightheadedness. She never had any of episodes like this before Wednesday. Since Wednesday she has been experiencing these episodes more frequently each day. She states that when she stands up from a seat position or if she has been standing too long, she gets extremely dizzy, lightheaded and then falls. "It feels like the world is spinning around me, then my body feels weightless and I collapse to the floor." Patient reports that she experiences blurred vision before she falls. She states that she has never lost consciousness with these falls. Denies hitting her head. No acute events overnight. Patient states that she is very independent at home and walks with a cane. She states that she has been feeling dizzy for the past few days, described as "feeling un-centered" and "room-spinning". Denies any CP/SOB. No headaches. No N/V/D. No abd pain. No F/C. No signs of bleeding. Not found to be orthostatic. Neurology Dr. Wayne was consulted, MRI of brain MRA, CTH, EEG were reviewed and found to be negative. Pt vertigo being managed with antivert. Cardiology Dr. Tolbert was consulted. Pt last Echo was reviewed with EF of 72%. No further cardiology workup recommended at this time. PT evaluated and determined pt to be stable for DC home. Pt instructed to fu with PMD Dr. Greenwood upon dc. Discharge Exam - Head Exam Head Exam: ATRAUMATIC, NORMAL INSPECTION, NORMOCEPHALIC - Eye Exam Eye Exam: EOMI, Normal appearance, PERRL Pupil Exam: NORMAL ACCOMODATION, PERRL - ENT Exam ENT Exam: Mucous Membranes Moist - Respiratory Exam Respiratory Exam: Clear to PA & Lateral, NORMAL BREATHING PATTERN, UNREMARKABLE - Cardiovascular Exam Cardiovascular Exam: RRR, +S1, +S2 - GI/Abdominal Exam GI & Abdominal Exam: Normal Bowel Sounds, Soft. absent: Tenderness - Extremities Exam Extremities exam: normal inspection - Neurological Exam Neurological exam: Alert, CN II-XII Intact, Normal Gait, Oriented x3, Reflexes Normal Additional comments: walks with cane - Psychiatric Exam Psychiatric exam: Normal Affect, Normal Mood - Skin Skin Exam: Dry, Intact, Normal Color, Warm Discharge Plan - Discharge Medications Prescriptions: Carbamide Peroxide [Debrox Ear Drops] 1 ml AU BID #1 bottle Meclizine [Meclizine*] 25 mg PO Q8H #180 tab - Follow Up Plan Condition: FAIR Disposition: HOME/ ROUTINE Instructions: Syncope (DC) Additional Instructions: MAY DISCHARGE HOME AFTER CLEARED BY CARDIOLOGY AND AFTER ECHO IS DONE FOLLOW UP WITHIN 1 WEEK. RESUME HOME MEDS UPDATED AMBULATORY ORDERS. STOP CRESTOR. Referrals: Thomas Greenwood MD [Primary Care Provider] - 1 Week (MAY DISCHARGE HOME AFTER CLEARED BY CARDIOLOGY AND AFTER ECHO IS DONE FOLLOW UP WITHIN 1 WEEK. RESUME HOME MEDS UPDATED AMBULATORY ORDERS. STOP CRESTOR.)
--- NOTE | 2017-07-07 15:26 | EEG ---
INTRODUCTION: This is a digitally recorded EEG monitoring using standard EEG montages. BACKGROUND RHYTHM: The EEG shows a background activity of 8 Hertz alpha activity in parieto-occipital region. The EEG activity is bilateral, symmetrical and synchronous. There is attenuation of the background activity on eye opening. ABNORMAL POTENTIALS: No spike, sharp waves or focal slowing was seen. Photic stimulation and hyperventilation. Photic stimulation did not reveal any abnormality. Hyperventilation was not performed. IMPRESSION: Normal EEG. No epileptiform activity seen in this EEG recording. Jorgito Wayne MD
--- NOTE | 2017-07-07 17:46 | CARD ---
APPROVED REPORT EKG Measurement Heart [id number] CO [id number] [id number] <Conclusion> Normal sinus rhythm Minimal voltage criteria for LVH, may be normal variant ST & T wave abnormality, consider lateral ischemia Prolonged QT Abnormal ECG
--- NOTE | 2017-07-07 17:59 | CARD ---
APPROVED REPORT EKG Measurement Heart [id number] MT 184P52 [id number] <Conclusion> Sinus rhythm with premature atrial complexes Minimal voltage criteria for LVH, may be normal variant ST & T wave abnormality, consider lateral ischemia Prolonged QT Abnormal ECG
--- NOTE | 2017-07-07 18:58 | DS ---
LOCATION: The patient was seen in room #275, bed #1. The patient was ambulating in the room. The patient denies any dizziness. Denies any loss of consciousness. Denies any near syncope. Denies any chest pain. Denies any nausea. Overnight nurse's notes were reviewed. The patient slept without any adverse events documented. The patient was seen by cardiology, cleared for discharge. The patient was seen by neurology. The patient was cleared for discharge. PHYSICAL EXAMINATION: VITAL SIGNS: T-max 98.3... Telemetry shows sinus rhythm, blood pressure shows 138/71, 116/63, 127/64, 119/26, 127/50; respiration 18-20; O2 sat is 95-97%. HEAD EXAMINATION: Normocephalic, atraumatic. HEENT: Examination shows pinkish pale conjunctivae. Anicteric sclerae. No oropharyngeal lesion. No neck rigidity. CHEST: Examination kyphosis. LUNGS: Examination shows no rales, crackles or wheezing. CARDIOVASCULAR: Shows S1, S2, regular rhythm. ABDOMEN: Obese. Positive bowel sound. GENITALIA: Female. RECTAL: Examination is deferred. EXTREMITY: Shows chronic nonpitting swelling of the lower extremity. MUSCULOSKELETAL: Examination shows a body mass index of 43. Gait examination is independent. Romberg sign is negative today. The patient's jtnyoz-qzpw-jlrtxm coordination has significantly improved. Motor strength is normal and equal on both upper and lower extremity. PSYCHIATRIC: Examination positive history of anxiety, depression and insomnia. Cranial nerve II through XII intact and limited. DIAGNOSTICS: On July 07, WBC 7.3, hemoglobin/hematocrit 9.7 and 30.2, platelet 225. Sodium 40; potassium 4.2; chloride 108; CO2 of 21; anion gap 15; BUN 20; creatinine 1.0; GFR greater than 60; glucose 183, 200, 134 144, 164, 220, calcium 9.3; uric acid was 6.7; AST is 101, which is high; ALT is 75, which is also higher than normal. Cholesterol 169, LDL 93, HDL 53, triglyceride 130. B12 of 604. Thyroid panel was negative. Iron studies were noted. Iron saturation 15. Iron level is low normal at 57. HIV and hepatitis A, B, C negative. Urine cultures less than 1000. Carotid ultrasound was noted. MRI, MRA of the brain was negative. EKG was reviewed, shows sinus rhythm with LVH, T-wave inversion in I, aVL and V2 to V6. The patient was cleared by neurology. The patient's EEG was read normal by neurology. FINAL IMPRESSION, PLAN AND DISCHARGE DIAGNOSIS 1. Near syncope. 2. Near syncope with dizziness. 3. Possible labyrinthine dysfunction. 4. Questionable positional vertigo. 5. Hypertension. 6. Morbid obesity with elevated body mass index of 43. 7. Normocytic iron-deficiency anemia. 8. Granulocytosis. 9. Type 2 noninsulin-requiring diabetes mellitus. 10. Hyperuricemia. 11. Transaminitis, etiology undetermined. 12. Mild prerenal kidney injury. 13. Dyslipidemia. 14. History of vitamin B12 deficiency. 15. History of hypothyroidism. 16. Low is trying to stretch but anyway fellow 17. Questionable urinary tract infection with proteinuria, microscopic hematuria, pyuria, bacteriuria. 18. Gait dysfunction. 19. Mild cardiomegaly. 20. Questionable anterolateral coronary ischemic changes on the EKG. 21. Morbid obesity. 22. History of insomnia. 23. Iron-deficiency anemia. 24. Hypomagnesemia. 25. History of depression. 26. History of thyroidism 27. History of anxiety. 28. Hyperuricemia. Plan at this time, the patient is to be discharge after cleared by cardiology and after echo is done. The patient will hold her Crestor at home. Because of elevated LFTs, discharge medications are allopurinol 100 mg twice a day, Xanax 0.25 t.i.d. p.r.n., aspirin 81 mg daily, Debrox ear drops to both ears twice a day, vitamin B12 of 1000 mcg monthly, vitamin D 50,000 units weekly, folic acid 1 mg daily, Lopid 600 mg twice a day, Amaryl 1-2 mg twice a day, Synthroid 150 mcg daily magnesium oxide 400 mg three times a day, Antivert 25 mg three times a day, metformin 1000 mg twice a day breakfast and dinner and 500 mg with lunch, Paxil 20 mg at bedtime, Diovan 80 mg daily, Ambien 10 mg at bedtime. The patient was advised to be discharged home after cardiology clearance and after echo was done. Follow up with Dr. Greenwood within 1 week. The patient is advised to resume home medications as per updated ambulatory orders with new prescription sent to the pharmacy. The patient was advised to stop Crestor. During this hospitalization, the patient was extensively explained about her diagnosis, test results, recommendation, treatment plan, management plan, outpatient followup plan and need for outpatient further diagnostic, therapeutic intervention was explained to the patient in layman's language. All questions concerned answered. Time spent in the entire discharge process more than 45 minutes. Thomas Greenwood MD
--- NOTE | 2017-07-08 07:23 | EEG ---
HISTORY: The patient came with the syncopal episode and history of syncope. CONDITION OF THE RECORDING: Awake and drowsy. DESCRIPTION: Background activity of this tracing was composed of 8 to 9 cycles per second. Alpha rhythm was small amount. Beta activity 16 to 20 cycles per second was noted in the tracing. Theta activity 5 to 7 cycles per second was noted in the tracing. Drowsiness with mixed beta and theta activity. Photic stimulation does not change in record. No paroxysmal activity was seen in the record. IMPRESSION: Normal, awake, drowsy EEG. Emiliano Perez MD
== END 2017-07-07 14:14 | disposition home or self-care (01) | DRG 149 ==
LOC: ED 14:18 → ERH 18:29 → 2RSO 21:08 → OBSVTOIN 07-06 18:13
PROVIDERS: ADMIT Internal Medicine; ATTEND Internal Medicine
DX: H83.2X9 Labyrinthine dysfunction, unspecified ear (principal); I11.9 Hypertensive heart disease without heart failure; Z68.41 Body mass index [BMI] 40.0-44.9, adult; I65.29 Occlusion and stenosis of unspecified carotid artery; D50.9 Iron deficiency anemia, unspecified; E11.9 Type 2 diabetes mellitus without complications; E66.01 Morbid (severe) obesity due to excess calories; E03.9 Hypothyroidism, unspecified; E78.5 Hyperlipidemia, unspecified; I87.8 Other specified disorders of veins; M47.9 Spondylosis, unspecified; M81.0 Age-related osteoporosis without current pathological fracture; R26.2 Difficulty in walking, not elsewhere classified; Z79.84 Long term (current) use of oral hypoglycemic drugs; Z79.899 Other long term (current) drug therapy; Z87.440 Personal history of urinary (tract) infections; M17.0 Bilateral primary osteoarthritis of knee; K21.9 Gastro-esophageal reflux disease without esophagitis; R40.2412 Glasgow coma scale score 13-15, at arrival to emergency department; R74.0 Nonspecific elevation of levels of transaminase and lactic acid dehydrogenase [LDH]; R80.9 Proteinuria, unspecified; R31.29 Other microscopic hematuria; R82.71 Bacteriuria

== ENCOUNTER 2018-08-03 13:06 | Emergency (ER) | payer MEDICARE ==
[2018-08-03 13:11] VITALS: BMI 40.7
[2018-08-03 13:15] VITALS: RESP 18
[2018-08-03] MEDS ORDERED: Sodium Chloride 0.9% 1,000 ML IV STA ×2 (13:38→16:09)
--- NOTE | 2018-08-03 14:05 | ED PDOC ---
Arrival/HPI - History of Present Illness Narrative History of Present Illness (Text): 63 y/o F w/ h/o HTN & endometriosis presenting to the ED for persistent vaginal bleeding. The patient reports she was at home when she experienced a feeling of dizziness and lightheadedness when she noted brownish blood in her underwear. As the days progressed, she reports having near syncopal episodes, bright red blood noted through her sanitary pads and generalized weakness. She reports previous history of heavy bleeding where she received D&Cs. She reports her LMP being at the age of [age] years old & denies any history of hormone replacement. She denies chest pain, nausea, emesis, back pain, arm pain, syncopal episodes, numbness and tingling or paresthesias. PCP: Dr. Greenwood Time/Duration: Other (48 hours) Symptom Onset: Gradual Symptom Course: Worsening Quality: Unable to Describe Activities at Onset: Rest Context: Home <Montana Patterson - Last Filed: 08/03/18 17:51> <Donald Joy - Last Filed: 08/03/18 20:43> - General Chief Complaint: Female Genitourinary Time Seen by Provider: 08/03/18 13:37 Past Medical History - Provider Review Nursing Documentation Reviewed: Yes - Travel History Have you recently traveled outside [place] w/in the past 3 mons?: No - Infectious Disease Hx of Infectious Diseases: None - Tetanus Immunization Tetanus Immunization: Unknown - Reproductive Menopause: Yes - Cardiac Hx Hypertension: Yes - Pulmonary Hx Respiratory Disorders: Yes Hx Pneumonia: Yes (hx) - Neurological Hx Neurological Disorder: Yes Hx Dizziness: Yes Other/Comment: bells palsy - HEENT Hx HEENT Disorder: No - Renal Hx Renal Disorder: No - Endocrine/Metabolic Hx Diabetes Mellitus Type 1: Yes Hx Diabetes Mellitus Type 2: Yes Hx Hypothyroidism: Yes - Hematological/Oncological Hx Blood Disorders: Yes Hx Cancer: Yes (skin) - Integumentary Hx Dermatological Disorder: Yes Hx Melanoma: Yes Other/Comment: MASS UNDER THE BREAST AND ABDOMEN.SCAR TO FOREHEAD-EXCISION OF SKIN MELANOMA - Musculoskeletal/Rheumatological Hx Arthritis: Yes (b/ knees) - Gastrointestinal Hx Gastrointestinal Disorders: Yes Hx Gastroesophageal Reflux: Yes - Genitourinary/Gynecological Hx Genitourinary Disorders: No Other/Comment: 2 D AND C'S - Psychiatric Hx Psychophysiologic Disorder: Yes Hx Depression: Yes Hx Emotional Abuse: No Hx Physical Abuse: No Hx Substance Use: No - Past Surgical History Past Surgical History: No Previous - Surgical History Other/Comment: skin cancer removed from Forehead. 2 D&C's - Anesthesia Hx Anesthesia: Yes Hx Anesthesia Reactions: No Hx Malignant Hyperthermia: No - Suicidal Assessment Feels Threatened In Home Enviroment: No <Montana Patterson - Last Filed: 08/03/18 17:51> Family/Social History - Physician Review Nursing Documentation Reviewed: Yes Family/Social History: Unknown Family HX Smoking Status: Never Smoked Hx Alcohol Use: No Hx Substance Use: No Hx Substance Use Treatment: No <Bosompem[place]ana - Last Filed: 08/03/18 17:51> Allergies/Home Meds <Mihai Pattersonyl - Last Filed: 08/03/18 17:51> <Donald Joy - Last Filed: 08/03/18 20:43> Allergies/Adverse Reactions: Allergies No Known Allergies Allergy (Verified 07/05/17 20:47) Home Medications: Home Meds Medication Instructions Recorded Confirmed Alprazolam [Xanax] 0.25 mg PO TID PRN 04/07/14 08/03/18 PARoxetine [Paxil] 20 mg PO HS 04/07/14 08/03/18 Gemfibrozil [Lopid] 600 mg PO BID 11/11/15 08/03/18 Aspirin [Ecotrin] 325 mg PO DAILY 11/21/15 08/03/18 Magnesium Oxide [Mag-Ox] 400 mg PO QID 11/21/15 08/03/18 Zolpidem [Ambien] 10 mg PO HS 11/21/15 08/03/18 Allopurinol [Zyloprim] 1 tab PO BID 07/05/17 08/03/18 Cyanocobalamin (Vitamin B-12) 1,000 mcg SC Q2W 07/05/17 08/03/18 [Liquid B12] Folic Acid 1 mg PO DAILY 07/05/17 08/03/18 Glimepiride [amaRYL] 4 mg PO BID 07/05/17 08/03/18 Levothyroxine Sodium [Levothroid] 137 mcg PO DAILY 07/05/17 08/03/18 Atorvastatin [Lipitor] 1 tab PO HS 08/03/18 08/03/18 Denosumab [Prolia] 60 mg SC ONCE 08/03/18 08/03/18 Ergocalciferol [Drisdol 50,000 1 cap PO Q72 08/03/18 08/03/18 Intl Units Cap] Febuxostat [Uloric] 80 mg PO DAILY 08/03/18 08/03/18 Losartan [Cozaar] 1 tab PO DAILY 08/03/18 08/03/18 Review of Systems - Physician Review All systems were reviewed & negative as marked: Yes - Review of Systems Genitourinary Female: Vaginal Bleeding. absent: Dysuria, Frequency, Hematuria, Vaginal Discharge Neurological: Dizziness. absent: Focal Weakness, Facial Droop <Montana Patterson - Last Filed: 08/03/18 17:51> Physical Exam Vital Signs Reviewed: Yes Vital Signs Temp Pulse Resp BP Pulse Ox 08/03/18 13:15 98.1 F 95 H 18 122/78 96 Temperature: Afebrile Blood Pressure: Normal Pulse: Regular Appearance: Positive for: Well-Appearing, Non-Toxic, Comfortable Mental Status: Positive for: Alert and Oriented X 3, Lethargic - Systems Exam Head: Present: Atraumatic, Normocephalic, Other (facial pallor) Pupils: Present: PERRL Extroacular Muscles: Present: EOMI Conjunctiva: Present: Normal Mouth: Present: Moist Mucous Membranes Neck: Present: Normal Range of Motion Respiratory/Chest: Present: Clear to Auscultation, Good Air Exchange. No: Respiratory Distress Cardiovascular: Present: Regular Rate and Rhythm, Normal S1, S2 Lower Extremity: Present: Normal Inspection, NORMAL PULSES. No: Edema, CALF TENDERNESS Neurological: Present: GCS=15, CN II-XII Intact, Speech Normal Skin: Present: Warm, Dry, Normal Color Psychiatric: Present: Alert, Oriented x 3, Normal Insight <Montana Patterson - Last Filed: 08/03/18 17:51> Vital Signs Temp Pulse Resp BP Pulse Ox 08/03/18 20:09 86 18 118/73 96 08/03/18 13:15 98.1 F 95 H 18 122/78 96 <Donald Joy - Last Filed: 08/03/18 20:43> Medical Decision Making ED Course and Treatment: Impression 63 y/o F w/ h/o endometriosis requiring D & C presenting to the ED with vaginal bleeding Differential diagnoses Includes But Is Not Limited To: Endometrial Cancer Vaginal laceration Plan --Labs --IV fluids --Type & screen --Endovaginal US --Reassess and disposition Progress Notes 08/03/18 17:51 Labs reviewed with Hgb noted to be 13.2. Patient is not deemed to be anemic at this time. Pending US results. - Lab Interpretations I have reviewed the lab results: Yes - RAD Interpretation Radiology Orders: 08/03/18 13:38 TRANSVAGINAL [US] Stat - Medication Orders Current Medication Orders: Sodium Chloride (Sodium Chloride 0.9%) 1,000 mls @ 100 mls/hr IV .Q10H STA Stop: 08/03/18 23:37 <Montana Patterson - Last Filed: 08/03/18 17:51> ED Course and Treatment: 08/03/18 20:13 History Vaginal bleeding for the last 48 hrs. Comparison None available. Technique Realtime sonographic images were obtained in multiple projections. Findings Uterus Measures 11.1 x 5.2 x 6.9 cm. Normal in size and appearance. No fibroid or other mass lesion seen. Endometrium Measures 18-19 mm in diameter. Thickened. Cervix Fluid is seen in the cervical canal. Right ovary Not visualized. Left ovary Not visualized. Free fluid No significant free fluid noted. Other Findings None. Impression 1. Thickened endometrium. 2. Fluid in the cervical canal. 3. Both ovaries are not visualized. Electronically signed on Aug 03, 2018 7:54:47 PM EDT by: Luis A Estrada M.D., DUY Certified By [facility] Fellowship Trained MRI and CT Specialist likely endometritis Seen by Dr. Greenwood bedside- we are to update him on US results, otherwise pt is ok to go home paged dr. Greenwood 08/03/18 20:40 Pt in NAD with VSS, Neuro exam unremarkable. clear for d/c home appreciate consult w/ Dr. Greenwood: pt can f/u with him in office tomorrow. informed pt to follow up w/ [employer] regarding endometritis. pt endorsed understanding - Lab Interpretations Lab Results: 08/03/18 14:26 08/03/18 14:26 Lab Results 08/03/18 14:26: Blood Type O POSITIVE, Antibody Screen Negative, BBK History Checked No verified bt 08/03/18 14:26: Sodium 140, Potassium 4.6, Chloride 103, Carbon Dioxide 24, Anion Gap 18, BUN 22 H, Creatinine 1.4 H, Est GFR ( Amer) 46, Est GFR (Non-Af Amer) 38, Random Glucose 229 H, Calcium 10.2, Total Bilirubin 0.9, AST 59 H D, ALT 41, Alkaline Phosphatase 87, Total Protein 8.2, Albumin 4.6, Globulin 3.6, Albumin/Globulin Ratio 1.3 08/03/18 14:26: WBC 9.9 D, RBC 4.30, Hgb 13.6 D, Hct 40.2, MCV 93.5 D, MCH 31.6, MCHC 33.8, RDW 13.2, Plt Count 287, MPV 10.4, Gran % 79.2 H, Lymph % (Auto) 12.0 L, [place] % (Auto) 6.6 H, Eos % (Auto) 1.9, Baso % (Auto) 0.3, Gran # 7.85 H, Lymph # (Auto) 1.2, [place] # (Auto) 0.7 H, Eos # (Auto) 0.2, Baso # (Auto) 0.03 - RAD Interpretation Radiology Orders: 08/03/18 13:38 TRANSVAGINAL [US] Stat - Medication Orders Current Medication Orders: Sodium Chloride (Sodium Chloride 0.9%) 1,000 mls @ 100 mls/hr IV .Q10H STA Stop: 08/03/18 23:37 Last Admin: 08/03/18 14:39 Dose: 100 mls/hr eMAR Start Stop Document 08/03/18 14:39 HI (Rec: 08/03/18 14:39 ID [id number]) Intravenous Solution Start Date 08/03/18 Start Time 14:28 Discontinued Medications Sodium Chloride (Sodium Chloride 0.9%) 1,000 mls @ 999 mls/hr IV .Q1H1M STA Stop: 08/03/18 17:09 Metoclopramide HCl (Reglan) 10 mg IVP STAT STA Stop: 08/03/18 16:10 <Donald Joy - Last Filed: 08/03/18 20:43> Disposition/Present on Arrival - Present on Arrival History of DVT/PE: No History of Uncontrolled Diabetes: No Urinary Catheter: No History of Decub. Ulcer: No History Surgical Site Infection Following: None <Montana Patterson - Last Filed: 08/03/18 17:51> - Present on Arrival Any Indicators Present on Arrival: No - Disposition Have Diagnosis and Disposition been Completed?: Yes Disposition Time: 20:42 <Donald Joy - Last Filed: 08/03/18 20:43> - Disposition Diagnosis: Endometritis Condition: GOOD Forms: [employer] (Urdu)
[2018-08-03 14:40] LABS: BASO # 0.03 K/mm3 (0.0-2.0); BASO % 0.3 % (0.0-3.0); EOS # 0.2 (0.0-0.7); EOS % 1.9 % (1.5-5.0); GRAN # 7.85 (1.4-6.5); GRAN % 79.2 % (50.0-68.0); HEMOGLOBIN 13.6 g/dL (12.0-16.0); LYMPH # 1.2 (1.2-3.4); MEAN CELL VOLUME 93.5 fl (80.0-105.0); MEAN CORPUSCULAR HEMOGLOBIN 31.6 pg (25.0-35.0); MEAN CORPUSCULAR HGB CONC 33.8 g/dl (31.0-37.0); MEAN PLATELET VOLUME 10.4 fl (7.0-11.0); MONO # 0.7 (0.1-0.6); MONO % 6.6 % (1.0-6.0); RBC 4.3 10^6/uL (3.5-6.1); RED CELL DISTRIBUTION WIDTH 13.2 % (11.5-14.5); WHITE BLOOD COUNT 9.9 10^3/ul (4.5-11.0)
[2018-08-03 14:52] LABS: ALB/GLOB RATIO 1.3 (1.1-1.8); ALBUMIN 4.6 g/dL (3.0-4.8); CALCIUM 10.2 mg/dL (8.4-10.5)
[2018-08-03 21:16] VITALS: BP 120/67; PULSE 84; TEMP 98.6; O2SAT 98
--- NOTE | 2018-08-04 10:44 | US ---
Date of service: 08/03/2018 HISTORY: vaginal bleeding for last 48 hours COMPARISON: None available. TECHNIQUE: Transvaginal pelvic ultrasound was performed. FINDINGS: UTERUS: Measures 11.1 x 5.2 x 6.9 cm. Normal in size and appearance. No fibroid or other mass lesion seen. ENDOMETRIUM: Measures 19 mm in diameter. The central endometrial echo complex is thick and there is fluid in the central endometrial canal. CERVIX: There is small amount of fluid in the endocervical canal. RIGHT OVARY: Not visualized. LEFT OVARY: Not visualized. FREE FLUID: No significant free fluid noted. OTHER FINDINGS: None. IMPRESSION: Thick central endometrial echo complex with small amount of fluid in the endometrial and endocervical canal. Findings are non-specific and could represent endometrial hyperplasia or endometrial carcinoma. For clinical follow-up, Correlation with hormone replacement therapy and if clinically indicated endometrial sampling is advised. A preliminary report was provided by [employer].
== END 2018-08-03 21:14 | disposition home or self-care (01) ==
LOC: ED 13:06
DX: N80.9 Endometriosis, unspecified (principal)
CPT/HCPCS: 76830; 80053; 85025; 86850; 86900; 99284; J7030